=== PATIENT | female | born 1950 | race Caucasian/White ===

== ENCOUNTER → 2023-07-16 16:06 | Outpatient (REF) | payer MEDICARE, SELFPAY | LOC: RAD 16:06 | PROVIDERS: ATTENDING PHYSICIAN Family Medicine; FAMILY PHYSICIAN Internal Medicine Critical Care Medicine | DX: R93.89 Abnormal findings on diagnostic imaging of other specified body structures (principal); E03.9 Hypothyroidism, unspecified | CPT/HCPCS: 71250; 76536 ==

== ENCOUNTER → 2023-10-28 09:55 | Outpatient (REF) | payer MEDICARE, SELFPAY | LOC: MRI 3T 09:55 | PROVIDERS: ATTENDING PHYSICIAN Student in an Organized Health Care Education/Training Program; FAMILY PHYSICIAN Family Medicine | DX: M54.41 Lumbago with sciatica, right side (principal) | CPT/HCPCS: 72148 ==

== ENCOUNTER 2023-12-12 18:48 | Emergency (ER) | payer MEDICARE, SELFPAY ==
[2023-12-12 19:00] VITALS: BP 166/102; BMI 33.1
[2023-12-12 19:15] LABS: Urine Albumin Negative (Neg - Trace); Urine Bilirubin Negative (Negative); Urine Character Clear (Clear); Urine Color Yellow; Urine Glucose Negative (Negative); Urine Ketone Negative (Negative); Urine Leukocyte Negative (Negative); Urine Nitrite Negative (Negative); Urine Occult Blood 1+ (Negative); Urine Urobilinogen Negative (Neg - 1+); Urine pH 6.5 (5.0-9.0)
[2023-12-12 19:21] LABS: Urine Red Blood Cell 0-2 /HPF (0-2); Urine White Cell 0-2 /HPF (0-5)
--- NOTE | 2023-12-12 20:22 | ED.GENMED ---
History of Present Illness
General
Chief Complaint: Abdominal Symptoms
Source: patient
Exam Limitations: none
Time Seen by Provider: 12/12/23 19:44
History of Present Illness
History of Present Illness:
This is a 73 year old female that comes in with c/o back pain. States that she just can't get settled. States that 3 days ago she had injection into her back by Dr. Boudreaux. State that she has had this in the past and never has had any trouble.
States that she had a little diarrhea on Thursday. States that now she has not had a BM. State that she was feeling great. Thursday she started with a little discomfort in her back so she took Aleve. States that she went out for dinner last
night and couldn't get comfortable and started to question if this was a kidney stone. States that she has discomfort between her shoulder blades and the lower back. Last night she had a very small hard stool so she has taken Gas-x as he has been
belching, stool softeners. States that she is not eating much. [place] and again she was uncomfortable so she came in. States that she has some abd discomfort with nausea. Denies any fever, chills, chest pain, SOB, vomiting,
diarrhea, headache, dizziness, urinary burning.
Past History
Past History
ED Past Medical History: Cancer (Skin ), HTN, Hypothyroidism and Other (Chronic back pain, Celiac Endometriosis, Renal calculus, Colonization of MRSA nasal )
ED Past Surgical History: Orthopedic (Left knee replacement)
Social History
Tobacco: Non-smoker
Alcohol: None
Personal:
Living: with family
Review of Systems
Review of Systems
All Other Systems: ROS reviewed and negative except as documented in HPI and ROS
Constitutional: Reports no symptoms; Denies fever or chills
EENT: Reports no symptoms
Respiratory: Reports no symptoms; Denies cough or trouble breathing
Cardiac: Denies chest pain
ABD/GI: Reports abdominal pain, nausea and constipated; Denies vomiting or diarrhea
: Reports no symptoms; Denies dysuria, frequency or urgency
Musculoskeletal: Reports back pain
Skin: Reports no symptoms
Neurological: Reports no symptoms; Denies dizzy or headache
Psychiatric: Reports no symptoms
Phy Exam
General Physical Exam
General Presentation: well appearing and no apparent distress
General age: appears stated age
General Skin: warm and dry
General Habitus: elderly
General Mental: alert
General Hydration: appears well hydrated
ENT Exam
ENT Exam: TM's normal, pharynx normal and neck supple
Eye Exam
Eye Exam: EOMI
Cardiovascular Exam
Cardiovascular Exam: regular rate/rhythm, no edema and normal peripheral pulses
Pulmonary Exam
Pulmonary Exam: lungs clear, no respiratory distress, no rales, chest non tender, no crackles, no rhonchi, no wheezing and no cough
Gastrointestinal Exam
Gastrointestinal Exam: normal bowel sounds, soft, no organomegaly, no pulsatile mass, non distended and tender (Generalized tenderness with palpation)
Musculoskeletal Exam
Musculoskeletal Exam: full ROM and no edema
Skin Exam
Skin Exam: normal color, warm/dry, no rash and no petechia
Psychiatric Exam
Psychiatric Exam: normal mood/affect
Course
Orders/Labs/Results
Orders:
Orders
12/12/23 19:10
Urinalysis Reflex To Culture Urgent
Date Specimen was Collected: 12/12/23
Time Specimen was Collected: 19:08
Urine Microscopic Reflex Cult Urgent
12/12/23 20:21
CT Abd/pelvis W Iv Cont Urgent
Comment:
Reason For Exam: Generalized abd pain
12/12/23 20:22
0.9% Sodium Chloride 1000 ml [Nss] 1,000 ml IV BOLUS
12/12/23 20:23
Electrocardiogram (*1) Urgent
Reason for Study: Abdominal Pain
EKG- Treatment ONCE
12/12/23 20:33
CRP [C-Reactive Protein] Urgent
Complete Blood Count/With Diff Urgent
Comprehensive Metabolic Panel Urgent
Sed Rate [Erythrocyte Sed Rate] Urgent
Troponin I Urgent
12/12/23 22:43
Acetaminophen [Tylenol] 1,000 mg PO NOW STA
Ketorolac [Toradol] 30 mg IV NOW STA
Magnesium Citrate [Citroma] 300 ml PO ONCE ONE
Ondansetron Injectable [Zofran] 4 mg IV NOW STA
Abnormal Lab Results
12/12/23 12/12/23
19:10 20:33
MCV 80.5 L fL
(81.0-99.0)
Absolute Monos (auto) 0.8 H 10^3/uL
(0.1-0.6)
Glucose 125 H mg/dl
(70-99)
C-Reactive Protein 11.50 H mg/L
(0.0-10.00)
Ur Occult Blood Reflex 1+ A
(Negative)
12/12/23 20:33
12/12/23 20:33
Urine negative for infection Glucose nonfasting. Sed rate normal at 9, CRP very slightly elevated 11.50 which is age related. Troponin <0.012,
Vital Signs
Initial and Last Documented VS:
Initial Vital Signs
Temp Pulse Resp BP Pulse Ox
98.2 F 73 16 166/102 95
12/12/23 19:00 12/12/23 19:00 12/12/23 19:00 12/12/23 19:00 12/12/23 19:00
Last Documented Vital Signs
Temp Pulse Resp BP Pulse Ox
98.2 F 69 17 187/73 96
12/12/23 19:00 12/12/23 22:52 12/12/23 22:52 12/12/23 22:52 12/12/23 22:52
MDM/Problems Addressed
Differential Diagnosis Includes:
Constipation, renal calculus
MDM/Problems Addressed:
This is a 73 year old female that comes in with c/o back and abd pain. States that she just can't get comfortable. States that she has pain in the back form between the shoulder blades and into the mid lower back. States that she has abd pain and
nausea. States that she has not had a normal BM since Thursday as she had diarrhea then and on Thursday she had a very small hard stool.
Will get labs, CT of abd, IV fluids.
Back into see patient. Explained that her blood work was normal. Sed rate is negative and CRP is very slightly elevated which goes along with age. Troponin is normal. CT does show constipation. Will give patient a bottle of magnesium citrate. Will
have her use Tylenol and Ibuprofen for pain. Will give Zofran for the nausea. Patient to follow up with the realty specialist for further evaluation. Return with any concerns,
Chronic conditions affecting care:
History of renal calculus, Chronic back pain
Acute Exacerbation and/or Progression of Chronic Illness:
Renal calculus, Chronic back pain
*Radiology
Radiology exam reviewed: radiology read reviewed (CT- No significant acute abnormality identified in the abdomen or pelvis, as described above. Mild diffuse colonic stool burden may reflect constipation. )
*Pulse Oximetry
Patient hypoxic: no
*Gravity Meter Operator Interpretation
Rate: Gravity Meter Operator- N/A
*Critical Care Note
Total Time (30-74mins, 75-104mins- exclusive of procedures): Not Applicable
ED Attending Note
-
Portions of this chart may have been created with voice recognition software.� Occasional wrong word or��sound alike� substitutions may have occurred due to the inherent limitations of voice recognition software.
Discharge Plan
Departure
Patient Disposition: Home (Routine Discharge)
Date of Disposition: 12/12/23
Time of Disposition: 22:47
Patient with high blood pressure during this ER visit?: Yes
Condition: Good
Covid-19: Not Applicable
Discharge Problem:
Constipation, Back pain
Instructions: Constipation, Adult (DC), BLOOD PRESSURE
Prescriptions:
New
ondansetron 4 mg tablet,disintegrating
4 mg PO Q8H PRN (Reason: nausea and vomiting) Qty: 7 0RF
No Action
levothyroxine 150 MCG tablet
150 mcg PO DAILY
zolpidem 10 MG tablet
10 mg PO HS
ascorbic acid (vitamin C) [Vitamin C] 1,000 MG tablet
1,000 mg PO DAILY
cholecalciferol (vitamin D3) 2,000 UNIT tablet
5,000 unit PO DAILY
ketorolac 10 MG tablet
10 mg PO R TIDPRN PRN (Reason: severe pain) Qty: 9 0RF
Referrals:
Luis Armando Romano, DO [Family Provider] -
Activity Restrictions/Additional Instructions:
As discussed, your blood work is normal. Your urine is negative for infection and your CT is negative for any acute process. IT does show constipation. You have been given a bottle of Magnesium citrate. Please drink the entire bottle as this will
work form the top down to help with the constipation Please increase your water intake to 8-8oz glasses daily. Please call the realty specialist for further evaluation. A prescription for Zofran has been sent to your Pharmacy to help with any
ausea. Please use Tylenol and alternate with Ibuprofen for pain. IF YOU HAVE INCREASED OR CHANGING PAIN, NUMBNESS, FEVER, OR YOU HAVE ANY OTHER CONCERNS PLEASE RETURN TO THE EMERGENCY ROOM.
Interventions
Interventions:
*Risk Screen - Suicide Last Done: 12/12/23 19:00
*Neglect/Abuse Screening Last Done: 12/12/23 19:00
ED- Fall Risk Assessment Last Done: 12/12/23 19:00
[facility] Assessment Last Done: 12/12/23 20:39
Discharge Date and Time
Print Language: HEBREW
[2023-12-12] MEDS: NSS 1000 IV (20:34)
[2023-12-12 20:44] LABS: % Basophils 0.3 % (0-2); % Eosinophils 1.3 % (0-6); % Immature Granulocytes 0.2 % (0-0.5); % Lymphocytes 27.2 % (20.5-51.1); % Monocytes 7.9 % (1.7-9.3); % Neutrophils 63.1 % (42.2-75.2); Absolute Eosinophils 0.1 10^3/uL (0-0.7); Absolute Lymphocytes 2.7 10^3/uL (1.2-3.4); Absolute Monocytes 0.8 10^3/uL (0.1-0.6); Absolute Neutrophils 6.2 10^3/uL (1.4-6.5); Hematocrit 42.1 % (37.0-47.0); Hemoglobin 15.5 g/dL (12.0-16.0); Mean Corp Hgb Conc. 36.8 g/dL (33.0-37.0); Mean Corpuscular Hgb 29.6 pg (27.0-31.0); Mean Corpuscular Volume 80.5 fL (81.0-99.0); Mean Platelet Volume 10.2 fL (7.4-10.4); Nucleated Red Blood Cells % 0 %; Platelet Count 235 10^3/uL (130-400); Red Blood Cell Count 5.23 10^6/uL (4.20-5.40); Red Cell Dist. Width 14.1 % (11.5-14.5); White Blood Cell Count 9.8 10^3/uL (4.8-10.8)
[2023-12-12 21:05] LABS: ALT (SGPT) 20 U/L (0-35); AST (SGOT) 26 U/L (14-36); Albumin 4.3 g/dl (3.5-5.0); Alkaline Phosphatase 82 U/L (38-126); Blood Urea Nitrogen 16 mg/dl (7-17); Calcium 9.8 mg/dl (8.4-10.2); Carbon Dioxide 26 mmol/L (22-30); Chloride 104 mmol/L (98-107); Estimated Creatinine Clearance 81 ml/min; Glucose 125 mg/dl (70-99); Potassium 4.2 mmol/L (3.5-5.1); Sodium 135 mmol/L (135-145); Total Bilirubin 0.4 mg/dl (0.2-1.3); Total Protein 6.6 g/dl (6.3-8.2); eGFR > 60.00
[2023-12-12 21:06] LABS: Erythrocyte Sed Rate 9 mm/hour (0-20)
[2023-12-12 21:09] LABS: Troponin I < 0.012 ng/ml
[2023-12-12 22:52] VITALS: BP 187/73
[2023-12-12] MEDS: ZOFRAN 4 MG IV (22:56)
[2023-12-12] MEDS: CITROMA 300 ML PO (22:56)
[2023-12-12] MEDS: TORADOL 30 MG IV (22:57)
[2023-12-12] MEDS: TYLENOL 1000 MG PO (22:57)
== END 2023-12-12 23:07 | disposition home or self-care (01) ==
LOC: EMR 18:48
PROVIDERS: Clinical Nurse Specialist Family Health; EMERGENCY PHYSICIAN Student in an Organized Health Care Education/Training Program; FAMILY PHYSICIAN Family Medicine
DX: M54.6 Pain in thoracic spine (principal); K59.00 Constipation, unspecified; R10.9 Unspecified abdominal pain; M54.50 Low back pain, unspecified; R11.0 Nausea; R03.0 Elevated blood-pressure reading, without diagnosis of hypertension; Z96.652 Presence of left artificial knee joint; Z88.1 Allergy status to other antibiotic agents; Z88.0 Allergy status to penicillin; Z91.018 Allergy to other foods
CPT/HCPCS: 99285; 96375; 96361; 96374; 74177; 80053; 81003; 81015; 84484; 85025; 85652; 86140; 93005; Q9967

== ENCOUNTER → 2024-02-05 12:00 | Outpatient (REF) | payer MEDICARE, SELFPAY | LOC: CLAB 12:00 | PROVIDERS: ATTENDING PHYSICIAN Podiatrist Foot Surgery | DX: G57.61 Lesion of plantar nerve, right lower limb (principal) | CPT/HCPCS: 88304 ==

== ENCOUNTER → 2024-02-11 09:25 | Outpatient (REF) | payer MEDICARE, SELFPAY ==
[2024-02-11 12:03] LABS: Free T4 1.27 ng/dl (0.78-2.19)
== END ==
LOC: REG 09:25
PROVIDERS: ATTENDING PHYSICIAN Internal Medicine Endocrinology, Diabetes & Metabolism; FAMILY PHYSICIAN Family Medicine
DX: E04.2 Nontoxic multinodular goiter (principal)
CPT/HCPCS: 36415; 76536; 84439; 84443

== ENCOUNTER → 2024-09-12 12:43 | Outpatient (REF) | payer MEDICARE, SELFPAY | LOC: CLAB 12:43 | PROVIDERS: ATTENDING PHYSICIAN Specialist | DX: D04.9 Carcinoma in situ of skin, unspecified (principal) | CPT/HCPCS: 88305; 88307; 88332; 88331 ==